=== PATIENT | male | born 1950 | race Caucasian/White ===

== ENCOUNTER 2017-05-15 08:22 | Outpatient (CLI) | payer MEDICARE, OTHER ==
[~2017-05-15] VITALS: Ht 170.2 cm; Wt 76.7 kg
[2017-05-15 08:38] VITALS: BP 136/73
[2017-05-15 09:23] LABS: BILIRUBIN,URINE NEGATIVE (NEGATIVE); CLARITY,URINE SLIGHTLY CLOUDY; COLOR,URINE YELLOW; GLUCOSE, URINE (UA) NEGATIVE (NEGATIVE); KETONES,URINE NEGATIVE (NEGATIVE); LEUKOCYTE ESTERASE ,URINE 1+ (NEGATIVE); NITRITE,URINE NEGATIVE (NEGATIVE); PH,URINE 8 (5-9); PROTEIN,URINE NEGATIVE (NEGATIVE); UROBILINOGEN,URINE NORMAL (NORMAL)
[2017-05-15] MEDS ORDERED: FA/M1TAB29 PO (09:25)
[2017-05-15] MEDS ORDERED: NITR0.4T39 SL (09:25)
[2017-05-15] MEDS ORDERED: ASPI-586 PO (09:25)
[2017-05-15] MEDS ORDERED: turmeric PO (09:25)
[2017-05-15] MEDS ORDERED: METO-333 PO (09:25)
[2017-05-15] MEDS ORDERED: CHOL500044 PO (09:25)
[2017-05-15] MEDS ORDERED: VITA-189 PO (09:25)
[2017-05-15] MEDS ORDERED: ATOR80TA76 PO (09:25)
[2017-05-15 09:35] LABS: BACTERIA,URINE NEGATIVE /HPF; RBC,URINE RARE /HPF; SQUAMOUS EPITHELIAL CELL,UR 0-2 /HPF; WBC,URINE 0-2 /HPF
--- NOTE | 2017-05-15 12:22 | Diagnostic Imaging Report ---
CLINICAL INDICATION: Preop chest x-ray for prostate surgery. EXAM: Chest x-ray, PA and lateral views. COMPARISON: None. FINDINGS: Lungs are clear. There is no pleural effusion or pneumothorax. Pulmonary vasculature and cardiac silhouette are within normal limits. There are mildly hypertrophic spurs involving the thoracic spine. IMPRESSION: There is no radiographic evidence of acute cardiopulmonary process. Dictated by: Dictated on workstation # [id number]
== END 2017-05-15 09:20 | disposition home or self-care (01) ==
LOC: PREOP 08:22
PROVIDERS: ATTEND Radiology Radiation Oncology
DX: Z01.811 Encounter for preprocedural respiratory examination (principal); Z01.818 Encounter for other preprocedural examination; Z11.2 Encounter for screening for other bacterial diseases; C61 Malignant neoplasm of prostate
CPT/HCPCS: 71046; 81000; 87081; 93005

== ENCOUNTER 2017-05-23 11:03 | Day surgery (SDC) | payer MEDICARE, OTHER ==
[~2017-05-23] VITALS: Ht 170.2 cm; Wt 76.7 kg
[2017-05-23 11:03] VITALS: BP 108/75
[~2017-05-23 11:03] MED LIST: ASPI-586 PO; ATOR80TA76 PO; CHOL500044 PO; FA/M1TAB29 PO; METO-333 PO; NITR0.4T39 SL; VITA-189 PO; turmeric PO
[2017-05-23] MEDS ORDERED: LACTATED RINGERS 1,000 ML IV PRN (11:04)
--- OUTSIDE RECORDS SUMMARY | 2017-05-23 11:06 | XMS REPORT | Continuity of Care Document ---
Author Author [facility] Organization [facility] Address Unknown Phone Unavailable Allergies There is no data. Medications There is no data. Problems Date Dx Coded Attending Type Code Diagnosis Diagnosed By 05/05/2013 EUGENIO BRADSHAW MD [address] MALIGN NEOPL PROSTATE 08/10/2013 EUGENIO BRADSHAW MD [address] MALIGN NEOPL PROSTATE 05/01/2017 Ot 185 MALIGN NEOPL PROSTATE 05/01/2017 Ot 185 MALIGN NEOPL PROSTATE Procedures There is no data. Results There is no data. Encounters ACCT No. Visit Date/Time Discharge Status Pt. Type Provider Facility Loc./Unit Complaint [id number] 05/12/2013 12:45:00 08/10/2013 00:01:00 DIS Outpatient EUGENIO BRADSHAW MD [facility] ONC [id number] 02/04/2013 09:22:00 05/05/2013 00:01:00 DIS Outpatient EUGENIO BRADSHAW MD [facility] ONC [id number] 05/23/2017 14:00:00 PEN Preadmit EUGENIO BRADSHAW MD [facility] PROSTATE CANCER [id number] 08/11/2013 14:39:00 Document Registration
[2017-05-23] MEDS ORDERED: LEVOFLOXACIN 500 MG/100 ML IV 100 ML IV ONE (11:15)
--- NOTE | 2017-05-23 12:00 | Progress Note-Pre Operative ---
Pre-Operative Progress Note H&P Reviewed The H&P was reviewed, patient examined and no changes noted. Date Seen by Provider: May 23, 2017 Time Seen by Provider: 11:59 Date H&P Reviewed: May 23, 2017 Time H&P Reviewed: 11:59 Pre-Operative Diagnosis: Recurrent biopsy proven prostate cancer cT1c, PSA 7, Christie 7 (3+4) EUGENIO BRADSHAW MD May 23, 2017 12:00
--- NOTE | 2017-05-23 12:02 | Discharge Inst-Simple/Standard ---
Discharge Inst-Standard Discharge Medications New, Converted or Re-Newed RX: RX Given to Pt/Family Patient Instructions/Follow Up Plan of Care/Instructions/FU: 1)Follow up with Dr. Thompson on 2017 at 3:15 pm. 2)[facility] at 10:30 am. Activity as Tolerated: Yes Discharge Diet: No Restrictions Other Inst to Patient Instruct patient on self velazquez catheter removal Thursday 05/25 at 0800. EUGENIO BRADSHAW MD May 23, 2017 12:02
[2017-05-23] MEDS ORDERED: ACET1TAB43 PO (12:07)
[2017-05-23] MEDS ORDERED: CIPR-226 PO (12:07)
[2017-05-23] MEDS ORDERED: fentaNYL INJECTION 100 MCG/2 ML AMP ONE ×2 (13:50→15:10)
[2017-05-23] MEDS ORDERED: DEXAMETHASONE 10 MG/ML (DECADRON) 1 ML VIAL ONE (13:50)
[2017-05-23] MEDS ORDERED: MIDAZOLAM 2 MG/2 ML (VERSED) VIAL ONE (13:50)
[2017-05-23] MEDS ORDERED: proPOfol 200 MG/20 ML (DIPRIVAN) VIAL IV ONE (13:50)
[2017-05-23] MEDS ORDERED: ONDANSETRON 4 MG/2 ML (SDV) Z0FRAN ONE (13:50)
[2017-05-23] MEDS ORDERED: LIDOCAINE PF 2% 5 ML (XYLOCAINE) VIAL ONE (13:50)
[2017-05-23] MEDS ORDERED: PHENYLEPHRINE 100 MCG/ML 10 ML (ANESTHESIA) SYR ONE (14:56)
[2017-05-23] MEDS ORDERED: ROCURONIUM 50 MG/5 ML (ZEMURON) VIAL IV ONE (14:56)
[2017-05-23] MEDS ORDERED: SEVOFLURANE (ULTANE) 15 ML INHAL SOLN ONE (15:17)
[2017-05-23] MEDS ORDERED: MEPERIDINE (DEMEROL) INJ 50 MG/ML IVP PRN (15:30)
[2017-05-23] MEDS ORDERED: ONDANSETRON 4 MG/2 ML (SDV) Z0FRAN IVP PRN (15:30)
[2017-05-23] MEDS: morphine INJ 10 MG/ML 1ML (SYR OR VIAL) IVP PRN ×2 (15:48→15:53)
--- NOTE | 2017-05-23 15:52 | Anesthesia-General Post-Op ---
General Patient Condition Mental Status/LOC: Same as Preop Cardiovascular: Satisfactory Nausea/Vomiting: Absent Respiratory: Satisfactory Pain: Controlled Complications: Absent Post Op Complications Complications None Follow Up Care/Instructions Patient Instructions None needed. Anesthesia/Patient Condition Patient Condition Patient is doing well, no complaints, stable vital signs, no apparent adverse anesthesia problems. No complications reported per nursing. D/C home per [facility] Criteria: No SKYLER CORRALES CRNA May 23, 2017 15:52
[2017-05-23 16:15] VITALS: BP 135/86
--- NOTE | 2017-05-23 16:28 | Progress Note-Post Operative ---
Post-Operative Progess Note Surgeon (s)/Chief Executive Officer (s) Surgeon EUGENIO BRADSHAW MD Chief Executive Officer: Sandhya ROMERO MD Pre-Operative Diagnosis Recurrent biopsy proven prostate cancer cT1c, PSA 7, Christie 7 (3+4) Post-Operative Diagnosis Same as pre-op Procedure & Operative Findings Date of Procedure 05/23/17 Procedure Performed/Findings 100 Gy Palladium 103 permanent prostate seed implant with cystogram along with insertion of bio-degradable hydrogel prostate-rectal spacer utilizing the SpaceOAR system Prostate volume 17.7 cc Anesthesia Type General Estimated Blood Loss Estimated blood loss (mL): Minimal Specimens/Packing Specimens Removed None Packing: N/A EUGENIO BRADSHAW MD May 23, 2017 16:28
--- NOTE | 2017-05-23 16:37 | Diagnostic Imaging Report ---
INDICATION: Fluoroscopy for brachytherapy. FINDINGS: Fluoroscopy was provided for brachytherapy. 13 seconds of fluoroscopic time was utilized. A single image was obtained demonstrating multiple radiation seed implants in the region of the prostate. IMPRESSION: Fluoroscopy for brachytherapy. Dictated by: Dictated on workstation # [id number]
[2017-05-23 16:45] VITALS: BP 128/80
[2017-05-23] MEDS ORDERED: APAP 300 MG/CODEINE 30 MG (TYLENOL #3) TAB PO ONE (16:45)
[2017-05-23 17:22] VITALS: BP 131/85
== END 2017-05-23 17:22 | disposition home or self-care (01) ==
LOC: SDC 11:03
PROVIDERS: ATTEND Radiology Radiation Oncology
DX: C61 Malignant neoplasm of prostate (principal); I10 Essential (primary) hypertension; I25.10 Atherosclerotic heart disease of native coronary artery without angina pectoris; E78.2 Mixed hyperlipidemia; Z88.0 Allergy status to penicillin; Z79.82 Long term (current) use of aspirin; Z79.899 Other long term (current) drug therapy; I25.2 Old myocardial infarction; Z80.3 Family history of malignant neoplasm of breast; Z80.42 Family history of malignant neoplasm of prostate; F17.210 Nicotine dependence, cigarettes, uncomplicated
CPT/HCPCS: 76965; 77290; 77318; 77331; 77332; 77336; 77470; 77778

== ENCOUNTER 2017-06-21 09:49 | Outpatient (RCR) | payer MEDICARE, OTHER ==
[~2017-06-21 09:49] MED LIST changes: +ACET1TAB43 PO; +CIPR-226 PO
== END 2017-09-19 | disposition home or self-care (01) ==
LOC: ONC 09:49
PROVIDERS: ATTEND Radiology Radiation Oncology
DX: C61 Malignant neoplasm of prostate (principal)
CPT/HCPCS: 77290

== ENCOUNTER 2017-07-19 02:45 | Outpatient (RCR) | payer MEDICARE, OTHER | END 2017-10-17 | disposition home or self-care (01) | LOC: ONC 02:45 | PROVIDERS: ATTEND Radiology Radiation Oncology | DX: C61 Malignant neoplasm of prostate (principal); Z51.0 Encounter for antineoplastic radiation therapy | CPT/HCPCS: 77295; 77336 ==